=== PATIENT | female | born 1980 | race Caucasian/White ===

== ENCOUNTER 2023-08-13 00:05 | Inpatient (IN) | payer MEDICARE, MEDICAID ==
--- NOTE | 2023-08-13 00:50 | ED ---
General Adult HPI - General Source: patient, EMS, RN notes reviewed, old records reviewed Mode of arrival: EMS Limitations: altered mental status <Lenny Vazquez - Last Filed: 08/13/23 01:53> <Ken Machado - Last Filed: 08/13/23 13:35> - General Chief complaint: Psychiatric Symptoms Stated complaint: Mental Health Time Seen by Provider: 08/13/23 00:18 - History of Present Illness Initial comments: 44 female presents with overdose, alcohol intoxication. Patient states she took 100 Lamictal tablets. She does not know the dose. She does not know what time she took them. She does admit to alcohol consumption and states that she wants to . This was a suicide attempt. (Lenny Vazquez) - Related Data Home Medications Medication Instructions Recorded Confirmed ARIPiprazole [Abilify] 2 mg PO HS 08/13/23 08/13/23 Desvenlafaxine Succinate [Pristiq 25 mg PO HS 08/13/23 08/13/23 ER] Gabapentin [Gralise] 600 mg PO TID 08/13/23 08/13/23 Levothyroxine Sodium [Synthroid] 50 mcg PO HS 08/13/23 08/13/23 Nicotine 21Mg/24Hr Patch [Habitrol] 1 patch TRANSDERM DAILY PRN 08/13/23 08/13/23 Propranolol [Inderal] 20 mg PO HS 08/13/23 08/13/23 clonazePAM [KlonoPIN] 1 mg PO BID 08/13/23 08/13/23 lamoTRIgine [LaMICtal] 400 mg PO BID 08/13/23 08/13/23 Allergies Allergy/AdvReac Type Severity Reaction Status Date / Time No Known Allergies Allergy Verified 08/13/23 10:16 Review of Systems ROS Other: All systems not noted in ROS Statement are negative. <Lenny Vazquez - Last Filed: 08/13/23 01:53> ROS Other: All systems not noted in ROS Statement are negative. <Ken Machado - Last Filed: 08/13/23 13:35> ROS Statement: Those systems with pertinent positive or pertinent negative responses have been documented in the HPI. General Exam General appearance: alert, appears intoxicated Head exam: Present: atraumatic, normocephalic Eye exam: Present: normal appearance, PERRL ENT exam: Present: normal exam Neck exam: Present: normal inspection Respiratory exam: Present: normal lung sounds bilaterally. Absent: respiratory distress, wheezes Cardiovascular Exam: Present: regular rate, normal rhythm GI/Abdominal exam: Present: soft. Absent: distended, tenderness Extremities exam: Present: normal inspection, normal capillary refill Neurological exam: Present: alert, oriented X3, CN II-XII intact Psychiatric exam: Present: depressed, anxious, suicidal ideation Skin exam: Present: warm, dry, intact <Lenny Vazquez - Last Filed: 08/13/23 01:53> Course Vital Signs 08/13/23 08/13/23 08/13/23 00:19 01:15 04:16 Temperature 98.7 F Pulse Rate 82 78 70 Respiratory 18 18 16 Rate Blood Pressure 113/95 123/89 112/80 O2 Sat by Pulse 95 96 94 L Oximetry 08/13/23 08/13/23 06:41 10:50 Temperature Pulse Rate 78 76 Respiratory 18 14 Rate Blood Pressure 141/100 150/97 O2 Sat by Pulse 100 99 Oximetry Medical Decision Making - Lab Data Result diagrams: 08/13/23 01:02 08/13/23 01:02 <Lenny Vazquez - Last Filed: 08/13/23 01:53> - Lab Data Result diagrams: 08/13/23 01:02 08/13/23 01:02 <Ken Machado - Last Filed: 08/13/23 13:35> - Medical Decision Making Was pt. sent in by a medical professional or institution (, PA, ALARM INSTALLATION TECHNICIAN, urgent care, hospital, or senior care...) When possible be specific @ -No Did you speak to anyone other than the patient for history (EMS, parent, family, police, friend...)? What history was obtained from this source @ -No Did you review nursing and triage notes (agree or disagree)? Why? @ -I reviewed and agree with nursing and triage notes Were old charts reviewed (outside hosp., previous admission, EMS record, old EKG, old radiological studies, urgent care reports/EKG's, senior care records)? Report findings @ -No old charts were reviewed Differential Mental Health Depression, anxiety, bipolar, psychosis, schizophrenia, borderline personality, situational depression, adjustment disorder, behavioral disorder, brain tumor, malingering, substance abuse, encephalopathy, medication reaction, dementia, hypothyroidism, degenerative neurologic disorder, lupus.... This is not meant to be all-inclusive list EKG interpreted by me (3pts min.). @ -Sinus rhythm with a first-degree AV block rate of 81, MN interval 212, QRS duration 88, QTc 401 X-rays interpreted by me (1pt min.). @ -None done CT interpreted by me (1pt min.). @ -None done U/S interpreted by me (1pt. min.). @ -None done What testing was considered but not performed or refused? (CT, X-rays, U/S, labs)? Why? @ -None What meds were considered but not given or refused? Why? @ -None Did you discuss the management of the patient with other professionals (professionals i.e. , PA, ALARM INSTALLATION TECHNICIAN, lab, RT, psych nurse, case management social worker, senior reservoir engineer, teacher, forestry technical officer, case resource manager)? Give summary @Discussed with poison control regarding recommendations, they recommend close monitoring and laboratory testing. Was smoking cessation discussed for >3mins.? @ -No Was critical care preformed (if so, how long)? @ -Yes, 35 minutes Were there social determinants of health that impacted care today? How? (Homelessness, low income, unemployed, alcoholism, drug addiction, transportation, low edu. Level, literacy, decrease access to med. care, assisted, rehab)? @ -No Was there de-escalation of care discussed even if they declined (Discuss DNR or withdrawal of care, Hospice)? DNR status @ -No What co-morbidities impacted this encounter? (DM, HTN, Smoking, COPD, CAD, Cancer, CVA, ARF, Chemo, Hep., AIDS, mental health diagnosis, sleep apnea, morbid obesity)? @ -Depression, alcohol abuse. Was patient admitted / discharged? Hospital course, mention meds given and route, prescriptions, significant lab abnormalities, going to OR and other pertinent info. @ -43-year-old female with alcohol intoxication, suicidal ideation and reported suicide attempt with overdose on Lamictal. Patient is on willing to stay when she took this and exactly how many tablets she took. Laboratory testing is performed with the only acute abnormality being a serum alcohol of 250. Patient will be observed on telemetry, monitor closely for symptoms of overdose and when sober she will be cleared for EPS evaluation. (Lenny Vazquez) Patient care signed out to me by previous shift physician, Dr. Vazquez. Augustin jackson, patient is a 43-year-old female presents to the emergency department for alleged Lamictal overdose. Case was discussed with poison control. Poison control requested medical monitoring until 10 monitoring for RN PRIOR AUTHORIZATION depression. Patient will be medically cleared should there be no acute medical issues until then. Patient eval by EPS recommended inpatient psychiatric admission. (Ken Machado) - Lab Data Lab Results 08/13/23 08/13/23 08/13/23 Range/Units 01:02 01:02 01:02 WBC 11.7 H (3.8-10.6) k/uL RBC 4.77 (3.80-5.40) m/uL Hgb 13.5 (11.4-16.0) gm/dL Hct 42.1 (34.0-46.0) % MCV 88.2 (80.0-100.0) fL MCH 28.3 (25.0-35.0) pg MCHC 32.1 (31.0-37.0) g/dL RDW 15.1 (11.5-15.5) % Plt Count 457 H (150-450) k/uL MPV 7.3 Neutrophils % 40 % Lymphocytes % 43 % Monocytes % 6 % Eosinophils % 8 % Basophils % 1 % Neutrophils # 4.6 (1.3-7.7) k/uL Lymphocytes # 5.0 H (1.0-4.8) k/uL Monocytes # 0.7 (0-1.0) k/uL Eosinophils # 0.9 H (0-0.7) k/uL Basophils # 0.2 (0-0.2) k/uL Manual Slide Review Performed PT 10.9 (10.0-12.5) sec INR 1.0 (<1.2) Sodium 143 (137-145) mmol/L Potassium 4.3 (3.5-5.1) mmol/L Chloride 108 H (98-107) mmol/L Carbon Dioxide 25 (22-30) mmol/L Anion Gap 10 mmol/L BUN 16 (7-17) mg/dL Creatinine 0.91 (0.52-1.04) mg/dL Est GFR (CKD-EPI)AfAm 88 (>60 ml/min/1.73 sqM) Est GFR (CKD-EPI)NonAf 76 (>60 ml/min/1.73 sqM) Glucose 117 H (74-99) mg/dL Plasma Lactic Acid Rudy (0.7-2.0) mmol/L Calcium 9.0 (8.4-10.2) mg/dL Magnesium 1.8 (1.6-2.3) mg/dL Total Bilirubin 0.3 (0.2-1.3) mg/dL AST 48 H (14-36) U/L ALT 38 H (4-34) U/L Alkaline Phosphatase 82 (38-126) U/L Total Protein 7.1 (6.3-8.2) g/dL Albumin 4.3 (3.5-5.0) g/dL Urine Color Urine Appearance (Clear) Urine pH (5.0-8.0) Ur Specific [place] (1.001-1.035) Urine Protein (Negative) Urine Glucose (UA) (Negative) Urine Ketones (Negative) Urine Blood (Negative) Urine Nitrite (Negative) Urine Bilirubin (Negative) Urine Urobilinogen (<2.0) mg/dL Ur Leukocyte Esterase (Negative) Urine RBC (0-5) /hpf Urine WBC (0-5) /hpf Ur Squamous Epith Cells (0-4) /hpf Urine Bacteria (None) /hpf Hyaline Casts (0-2) /lpf Urine Mucus (None) /hpf Urine HCG, Qual (Not Detectd) Salicylates <1.0 mg/dL Urine Opiates Screen (NotDetected) Ur Oxycodone Screen (NotDetected) Urine Methadone Screen (NotDetected) Acetaminophen <10.0 ug/mL Ur Barbiturates Screen (NotDetected) U Tricyclic Antidepress (NotDetected) Ur Phencyclidine Scrn (NotDetected) Ur Amphetamines Screen (NotDetected) U Methamphetamines Scrn (NotDetected) U Benzodiazepines Scrn (NotDetected) Urine Cocaine Screen (NotDetected) U Marijuana (THC) Screen (NotDetected) Serum Alcohol 256 H* mg/dL 08/13/23 08/13/23 08/13/23 Range/Units 01:02 01:52 01:52 WBC (3.8-10.6) k/uL RBC (3.80-5.40) m/uL Hgb (11.4-16.0) gm/dL Hct (34.0-46.0) % MCV (80.0-100.0) fL MCH (25.0-35.0) pg MCHC (31.0-37.0) g/dL RDW (11.5-15.5) % Plt Count (150-450) k/uL MPV Neutrophils % % Lymphocytes % % Monocytes % % Eosinophils % % Basophils % % Neutrophils # (1.3-7.7) k/uL Lymphocytes # (1.0-4.8) k/uL Monocytes # (0-1.0) k/uL Eosinophils # (0-0.7) k/uL Basophils # (0-0.2) k/uL Manual Slide Review PT (10.0-12.5) sec INR (<1.2) Sodium (137-145) mmol/L Potassium (3.5-5.1) mmol/L Chloride (98-107) mmol/L Carbon Dioxide (22-30) mmol/L Anion Gap mmol/L BUN (7-17) mg/dL Creatinine (0.52-1.04) mg/dL Est GFR (CKD-EPI)AfAm (>60 ml/min/1.73 sqM) Est GFR (CKD-EPI)NonAf (>60 ml/min/1.73 sqM) Glucose (74-99) mg/dL Plasma Lactic Acid Rudy 1.7 (0.7-2.0) mmol/L Calcium (8.4-10.2) mg/dL Magnesium (1.6-2.3) mg/dL Total Bilirubin (0.2-1.3) mg/dL AST (14-36) U/L ALT (4-34) U/L Alkaline Phosphatase (38-126) U/L Total Protein (6.3-8.2) g/dL Albumin (3.5-5.0) g/dL Urine Color Colorless Urine Appearance Cloudy H (Clear) Urine pH 6.5 (5.0-8.0) Ur Specific [place] 1.013 (1.001-1.035) Urine Protein Negative (Negative) Urine Glucose (UA) Negative (Negative) Urine Ketones Negative (Negative) Urine Blood Negative (Negative) Urine Nitrite Negative (Negative) Urine Bilirubin Negative (Negative) Urine Urobilinogen <2.0 (<2.0) mg/dL Ur Leukocyte Esterase Negative (Negative) Urine RBC <1 (0-5) /hpf Urine WBC 3 (0-5) /hpf Ur Squamous Epith Cells 14 H (0-4) /hpf Urine Bacteria Few H (None) /hpf Hyaline Casts 3 H (0-2) /lpf Urine Mucus Rare H (None) /hpf Urine HCG, Qual Not Detected (Not Detectd) Salicylates mg/dL Urine Opiates Screen Not Detected (NotDetected) Ur Oxycodone Screen Not Detected (NotDetected) Urine Methadone Screen Not Detected (NotDetected) Acetaminophen ug/mL Ur Barbiturates Screen Not Detected (NotDetected) U Tricyclic Antidepress Not Detected (NotDetected) Ur Phencyclidine Scrn Not Detected (NotDetected) Ur Amphetamines Screen Not Detected (NotDetected) U Methamphetamines Scrn Not Detected (NotDetected) U Benzodiazepines Scrn Not Detected (NotDetected) Urine Cocaine Screen Not Detected (NotDetected) U Marijuana (THC) Screen Not Detected (NotDetected) Serum Alcohol mg/dL Critical Care Time Critical Care Time: Yes Total Critical Care Time: 35 <Lenny Vazquez - Last Filed: 08/13/23 01:53> Critical Care Time: Monitoring of overdose, alcohol intoxication, suicide attempt (Lenny Vazquez) Disposition <Lenny Vazquez - Last Filed: 08/13/23 01:53> Decision Time: 13:35 <Ken Machado - Last Filed: 08/13/23 13:35> Clinical Impression: Suicidal behavior Disposition: ADMITTED IP TO THIS HOSP Condition: Fair Referrals: None,Stated [Primary Care Provider] - 1-2 days
[2023-08-13] MEDS: SODIUM CHLORIDE 0.9% 1,000 ML IV STA (01:13)
[2023-08-13 01:14] LABS: Basophils # (A) 0.2 k/uL (0-0.2); Basophils % (A) 1 %; Eosinophils # (A) 0.9 k/uL (0-0.7); Eosinophils % (A) 8 %; HCT 42.1 % (34.0-46.0); HGB 13.5 gm/dL (11.4-16.0); Lymphocytes % (A) 43 %; MCH 28.3 pg (25.0-35.0); MCHC 32.1 g/dL (31.0-37.0); MCV 88.2 fL (80.0-100.0); Mean Platelet Volume 7.3; Monocytes # (A) 0.7 k/uL (0-1.0); Monocytes % (A) 6 %; Neutrophils # (A) 4.6 k/uL (1.3-7.7); Neutrophils % (A) 40 %; Platelet Count 457 k/uL (150-450); RBC 4.77 m/uL (3.80-5.40); RDW 15.1 % (11.5-15.5); WBC 11.7 k/uL (3.8-10.6)
[2023-08-13 01:24] LABS: ALT 38 U/L (4-34); AST 48 U/L (14-36); Acetaminophen <10.0 ug/mL; African American GFR (CKD) 88 (>60 ml/min/1.73 sqM); Albumin 4.3 g/dL (3.5-5.0); Alkaline Phosphatase 82 U/L (38-126); Anion Gap 10 mmol/L; Blood Urea Nitrogen 16 mg/dL (7-17); Carbon Dioxide 25 mmol/L (22-30); Chloride 108 mmol/L (98-107); Glucose 117 mg/dL (74-99); Magnesium 1.8 mg/dL (1.6-2.3); Non-African American GFR(CKD) 76 (>60 ml/min/1.73 sqM); Potassium 4.3 mmol/L (3.5-5.1); Prothrombin Time 10.9 sec (10.0-12.5); Salicylate <1.0 mg/dL; Sodium 143 mmol/L (137-145); Total Bilirubin 0.3 mg/dL (0.2-1.3); Total Protein 7.1 g/dL (6.3-8.2)
[2023-08-13 01:37] LABS: Alcohol 256 mg/dL
[2023-08-13 02:14] LABS: Appearance,Urine Cloudy (Clear); Bacteria,Urine Few /hpf; Bilirubin,Urine Negative (Negative); Blood,Urine Negative (Negative); Color,Urine Colorless; Glucose,Urine (UA) Negative (Negative); Hyaline Casts,Urine 3 /lpf (0-2); Ketones,Urine Negative (Negative); Leukocyte Esterase,Urine Negative (Negative); Mucus,Urine Rare /hpf; Nitrite,Urine Negative (Negative); PH, Urine 6.5 (5.0-8.0); Protein,Urine Negative (Negative); RBC,Urine <1 /hpf (0-5); Specific Gravity,Urine 1.013 (1.001-1.035); Squamous Epithelial Cell,Urine 14 /hpf (0-4); Urobilinogen,Urine <2.0 mg/dL (<2.0); WBC,Urine 3 /hpf (0-5)
[2023-08-13 02:24] LABS: Amphetamine Screen,Urine Not Detected (NotDetected); Cocaine Screen,Urine Not Detected (NotDetected); Opiate Screen,Urine Not Detected (NotDetected); Phencyclidine Screen,Urine Not Detected (NotDetected); Urn Cannabinoid Scrn Not Detected (NotDetected)
[2023-08-13 02:25] LABS: Barbiturate Screen,Urine Not Detected (NotDetected); Benzodiazepines Screen,Urine Not Detected (NotDetected); Methadone Screen, Urine Not Detected (NotDetected); Oxycodone Screen, Urine Not Detected (NotDetected); Tricyclic Antidepressant,Urine Not Detected (NotDetected)
[2023-08-13] MEDS: ONDANSETRON 4 MG TAB PO STA (07:36)
[2023-08-13] MEDS: GABAPENTIN 300 MG CAP PO SCH ×2 (10:47→17:48)
[2023-08-13] MEDS: clonazePAM 1 MG TAB PO SCH (10:47)
[2023-08-13] MEDS: lamoTRIgine 100 MG TAB PO SCH (12:37)
[2023-08-13] MEDS: NICOTINE 21MG/24HR PATCH TRANSDERM PRN (13:41)
[2023-08-13] MEDS ORDERED: MAGNESIUM HYDROXIDE 2,400 MG/30 ML CUP PO PRN (17:06)
[2023-08-13] MEDS ORDERED: MAG HYDROX/AL HYDROX/SIMETH 355 ML BOTTLE PO PRN (17:06)
[2023-08-13] MEDS ORDERED: HALOPERIDOL LACTATE 5 MG/ML 1 ML VIAL IM PRN (17:10)
[2023-08-13] MEDS: PROPRANOLOL 20 MG TAB PO SCH (20:08)
[2023-08-13] MEDS: clonazePAM 1 MG TAB PO PRN (20:08)
[2023-08-13] MEDS: ARIPiprazole 2 MG TAB PO SCH (20:09)
[2023-08-13] MEDS ORDERED: ARIPiprazole 2 MG TAB PO SCH (21:00)
[2023-08-13] MEDS ORDERED: NON FORMULARY DRUG (Desvenlafaxine Succinate [Pristiq] 25 MG Tab.Er.24h) PO SCH (21:00)
[2023-08-13] MEDS ORDERED: PROPRANOLOL 10 MG TAB PO SCH (21:00)
[2023-08-13] MEDS ORDERED: LEVOTHYROXINE 50 MCG TAB PO SCH (21:00)
[2023-08-14] MEDS ORDERED: LORazepam 1 MG TAB PO PRN ×3 (00:44)
--- NOTE | 2023-08-14 00:44 | P.MDCNMH ---
History of Present Illness H&P Date: 08/14/23 Chief Complaint: medical evaluation 43 year old female with hypertension , and hypothyroid patient came in for evaluation due to alcohol intoxication and suicidal ideation , she claims that she overdosed on lamictal. currently her only complaint is diarrhea that has started after the over dose. denies any associated abd pain or bleeding . denies any nausea vomiting, fever, recent travel , or hospital stay. she denies any recent use of antibiotics. admits to vaping, denies any illicit drugs , admits to binge drinking alcohol review of systems Pertinent positives as noted in HPI. All other systems were reviewed and are negative on exam Constitutional: No acute distress, Eyes: Anicteric sclerae, moist conjunctiva, Pupils equal round reactive to light Lungs: Clear to auscultation Clear to percussion Normal respiratory effort, no accessory muscle use Cardiovascular: Heart regular in rate and rhythm, No murmurs, gallops, or rubs No peripheral edema Abdominal: Soft Nontender, no guarding, rebound or rigidity Abdomen moving with respiration Normoactive bowel sounds Extremities: No digital cyanosis No clubbing Pedal pulses intact and symmetrical Radial pulses intact and symmetrical No calf tenderness Psychiatric: Alert and oriented to person, place and time Neuro Muscles Strength 5/5 in all 4 extremities Sensation to light touch grossly present throughout Cranial nerves II-XII grossly intact Past Medical History Past Medical History: Thyroid Disorder History of Any Multi-Drug Resistant Organisms: None Reported Past Surgical History: Section, Hysterectomy Additional Past Surgical History / Comment(s): partial thyroidectomy, tumor removal on left buttock Past Anesthesia/Blood Transfusion Reactions: No Reported Reaction Past Psychological History: Bipolar Smoking Status: Vaper Past Alcohol Use History: Heavy, Occasional Additional Past Alcohol Use History / Comment(s): Pt states the she drinks heavily when she does drink but only drinks a few times/month. States "when I do drink, I drink until it's gone. I don't try to stop. I always feel guilty after I drink." Past Drug Use History: None Reported Medications and Allergies Home Medications Medication Instructions Recorded Confirmed Type ARIPiprazole [Abilify] 2 mg PO HS 08/13/23 08/13/23 History Desvenlafaxine Succinate [Pristiq 25 mg PO HS 08/13/23 08/13/23 History ER] Gabapentin [Gralise] 600 mg PO TID 08/13/23 08/13/23 History Levothyroxine Sodium [Synthroid] 50 mcg PO HS 08/13/23 08/13/23 History Nicotine 21Mg/24Hr Patch [Habitrol] 1 patch TRANSDERM DAILY PRN 08/13/23 08/13/23 History Propranolol [Inderal] 20 mg PO HS 08/13/23 08/13/23 History clonazePAM [KlonoPIN] 1 mg PO BID 08/13/23 08/13/23 History lamoTRIgine [LaMICtal] 400 mg PO BID 08/13/23 08/13/23 History Allergies Allergy/AdvReac Type Severity Reaction Status Date / Time No Known Allergies Allergy Verified 08/13/23 10:16 Physical Exam Vitals: Vital Signs Temp Pulse Pulse Resp BP BP BP 08/13/23 20:16 97 163/104 08/13/23 17:45 97.6 F 90 14 147/86 08/13/23 10:50 76 14 150/97 08/13/23 06:41 78 18 141/100 08/13/23 04:16 70 16 112/80 08/13/23 01:15 78 18 123/89 Pulse Ox 08/13/23 20:16 08/13/23 17:45 99 08/13/23 10:50 99 08/13/23 06:41 100 08/13/23 04:16 94 L 08/13/23 01:15 96 Intake and Output 08/13/23 08/13/23 08/14/23 14:59 22:59 06:59 Other: Weight 88.6 kg Cranial Nerve Examination - Cranial Nerves Cranial Nerve II- Optic: Intact Cranial Nerve III- Oculomotor: Intact Cranial Nerve IV- Trochlear: Intact Cranial Nerve V- Trigeminal: Intact Cranial Nerve - Abducens: Intact Cranial Nerve VII- Facial: Intact Cranial Nerve VIII- Auditory: Intact Cranial Nerve IX- Glossopharyngeal: Intact Cranial Nerve X- Vagus: Intact Cranial Nerve XI- Accessory: Intact Cranial Nerve XII- Hypoglossal: Intact Results CBC & Chem 7: 08/13/23 01:02 08/13/23 01:02 Labs: Abnormal Lab Results - Last 24 Hours (Table) 08/13/23 08/13/23 08/13/23 Range/Units 01:02 01:02 01:52 WBC 11.7 H (3.8-10.6) k/uL Plt Count 457 H (150-450) k/uL Lymphocytes # 5.0 H (1.0-4.8) k/uL Eosinophils # 0.9 H (0-0.7) k/uL Chloride 108 H (98-107) mmol/L Glucose 117 H (74-99) mg/dL AST 48 H (14-36) U/L ALT 38 H (4-34) U/L Urine Appearance Cloudy H (Clear) Ur Squamous Epith Cells 14 H (0-4) /hpf Urine Bacteria Few H (None) /hpf Hyaline Casts 3 H (0-2) /lpf Urine Mucus Rare H (None) /hpf Serum Alcohol 256 H* mg/dL Assessment and Plan Assessment: hypertension , uncontrolled continue with propranolol if BP continues to be elevated , consider adding amlodipine 5 mg po daily hypothyroid continue levothyroxine suicidal ideation overdose on home meds lamictal management per psych acute alcohol intoxication monitor for alcohol withdrawal benzo per CIWA thiamine daily blood work overall unremarkable WBC 11.7 Hgb 13.5 BUN 16 cr 0.9 Na 143, K 4.3 thank you for this consultation
[2023-08-14] MEDS: IBUPROFEN 600 MG TAB PO PRN (01:52)
[2023-08-14] MEDS: ACETAMINOPHEN TAB 325 MG TAB PO PRN (03:42)
[2023-08-14] MEDS: LEVOTHYROXINE 50 MCG TAB PO SCH (06:11)
[2023-08-14] MEDS: NICOTINE 21MG/24HR PATCH TRANSDERM SCH (07:52)
[2023-08-14] MEDS: diphenhydrAMINE 50 MG CAP PO SCH (19:59)
[2023-08-15] MEDS: LORazepam 0.5 MG TAB PO PRN (05:56)
[2023-08-15] MEDS: THIAMINE 100 MG TAB PO SCH (08:53)
--- NOTE | 2023-08-15 13:22 | P.HP ---
Psychiatric H&P - . H&P Date: 08/14/23 History & Physical: Allergies Allergy/AdvReac Type Severity Reaction Status Date / Time No Known Allergies Allergy Verified 08/14/23 08:24 Vital Signs Temp 98.0 F 08/15/23 06:01 Pulse 76 08/15/23 06:01 Resp 18 08/15/23 06:01 BP 137/91 08/15/23 06:01 Pulse Ox 99 08/15/23 06:01 FiO2 Laboratory Last Values WBC 11.7 k/uL (3.8-10.6) H 08/13/23 01:02 RBC 4.77 m/uL (3.80-5.40) 08/13/23 01:02 Hgb 13.5 gm/dL (11.4-16.0) 08/13/23 01:02 Hct 42.1 % (34.0-46.0) 08/13/23 01:02 MCV 88.2 fL (80.0-100.0) 08/13/23 01:02 MCH 28.3 pg (25.0-35.0) 08/13/23 01:02 MCHC 32.1 g/dL (31.0-37.0) 08/13/23 01:02 RDW 15.1 % (11.5-15.5) 08/13/23 01:02 Plt Count 457 k/uL (150-450) H 08/13/23 01:02 MPV 7.3 08/13/23 01:02 Neutrophils % 40 % 08/13/23 01:02 Lymphocytes % 43 % 08/13/23 01:02 Monocytes % 6 % 08/13/23 01:02 Eosinophils % 8 % 08/13/23 01:02 Basophils % 1 % 08/13/23 01:02 Neutrophils # 4.6 k/uL (1.3-7.7) 08/13/23 01:02 Lymphocytes # 5.0 k/uL (1.0-4.8) H 08/13/23 01:02 Monocytes # 0.7 k/uL (0-1.0) 08/13/23 01:02 Eosinophils # 0.9 k/uL (0-0.7) H 08/13/23 01:02 Basophils # 0.2 k/uL (0-0.2) 08/13/23 01:02 Manual Slide Review Performed 08/13/23 01:02 PT 10.9 sec (10.0-12.5) 08/13/23 01:02 INR 1.0 (<1.2) 08/13/23 01:02 Sodium 143 mmol/L (137-145) 08/13/23 01:02 Potassium 4.3 mmol/L (3.5-5.1) 08/13/23 01:02 Chloride 108 mmol/L (98-107) H 08/13/23 01:02 Carbon Dioxide 25 mmol/L (22-30) 08/13/23 01:02 Anion Gap 10 mmol/L 08/13/23 01:02 BUN 16 mg/dL (7-17) 08/13/23 01:02 Creatinine 0.91 mg/dL (0.52-1.04) 08/13/23 01:02 Est GFR (CKD-EPI)AfAm 88 (>60 ml/min/1.73 sqM) 08/13/23 01:02 Est GFR (CKD-EPI)NonAf 76 (>60 ml/min/1.73 sqM) 08/13/23 01:02 Glucose 117 mg/dL (74-99) H 08/13/23 01:02 Plasma Lactic Acid Rudy 1.7 mmol/L (0.7-2.0) 08/13/23 01:02 Calcium 9.0 mg/dL (8.4-10.2) 08/13/23 01:02 Magnesium 1.8 mg/dL (1.6-2.3) 08/13/23 01:02 Total Bilirubin 0.3 mg/dL (0.2-1.3) 08/13/23 01:02 AST 48 U/L (14-36) H 08/13/23 01:02 ALT 38 U/L (4-34) H 08/13/23 01:02 Alkaline Phosphatase 82 U/L (38-126) 08/13/23 01:02 Total Protein 7.1 g/dL (6.3-8.2) 08/13/23 01:02 Albumin 4.3 g/dL (3.5-5.0) 08/13/23 01:02 TSH 13.700 mIU/L (0.465-4.680) H 08/15/23 08:02 Free T4 1.00 ng/dL (0.78-2.19) 08/15/23 08:02 Urine Color Colorless 08/13/23 01:52 Urine Appearance Cloudy (Clear) H 08/13/23 01:52 Urine pH 6.5 (5.0-8.0) 08/13/23 01:52 Ur Specific [place] 1.013 (1.001-1.035) 08/13/23 01:52 Urine Protein Negative (Negative) 08/13/23 01:52 Urine Glucose (UA) Negative (Negative) 08/13/23 01:52 Urine Ketones Negative (Negative) 08/13/23 01:52 Urine Blood Negative (Negative) 08/13/23 01:52 Urine Nitrite Negative (Negative) 08/13/23 01:52 Urine Bilirubin Negative (Negative) 08/13/23 01:52 Urine Urobilinogen <2.0 mg/dL (<2.0) 08/13/23 01:52 Ur Leukocyte Esterase Negative (Negative) 08/13/23 01:52 Urine RBC <1 /hpf (0-5) 08/13/23 01:52 Urine WBC 3 /hpf (0-5) 08/13/23 01:52 Ur Squamous Epith Cells 14 /hpf (0-4) H 08/13/23 01:52 Urine Bacteria Few /hpf (None) H 08/13/23 01:52 Hyaline Casts 3 /lpf (0-2) H 08/13/23 01:52 Urine Mucus Rare /hpf (None) H 08/13/23 01:52 Urine HCG, Qual Not Detected (Not Detectd) 08/13/23 01:52 Salicylates <1.0 mg/dL 08/13/23 01:02 Urine Opiates Screen Not Detected (NotDetected) 08/13/23 01:52 Ur Oxycodone Screen Not Detected (NotDetected) 08/13/23 01:52 Urine Methadone Screen Not Detected (NotDetected) 08/13/23 01:52 Acetaminophen <10.0 ug/mL 08/13/23 01:02 Ur Barbiturates Screen Not Detected (NotDetected) 08/13/23 01:52 Lamotrigine 7.5 ug/mL (2.0-15.0) 08/13/23 18:42 U Tricyclic Antidepress Not Detected (NotDetected) 08/13/23 01:52 Ur Phencyclidine Scrn Not Detected (NotDetected) 08/13/23 01:52 Ur Amphetamines Screen Not Detected (NotDetected) 08/13/23 01:52 U Methamphetamines Scrn Not Detected (NotDetected) 08/13/23 01:52 U Benzodiazepines Scrn Not Detected (NotDetected) 08/13/23 01:52 Urine Cocaine Screen Not Detected (NotDetected) 08/13/23 01:52 U Marijuana (THC) Screen Not Detected (NotDetected) 08/13/23 01:52 Serum Alcohol 256 mg/dL H* 08/13/23 01:02 SARS-CoV-2 (PCR) Not Detected (Not Detectd) 08/13/23 13:51 08/14/23 13:20 Psychiatric Evaluation Identifying Data: Ms. Tatum is 43 years old, , white female, who lives in [place], [place] in a condo by herself. Chief Complaint: I made a bad choice, took Lamictal to History of Psychiatric Illness- The patient noted that she made a mistake by drinking and then taking 15-20 pills of Lamictal. The patient noted that she was thinking about her brother, who a year ago. She felt acutely depressed after getting intoxicated and made an impulsive gesture. The patient noted that she was doing fine but this happened suddenly. She called the ambulance after taking the pills. She stated that she does not want to . The patient noted she has been seeing a psychiat rist and a therapist as an out-pt on a regular basis since her twenties. She noted that she has been taking different antidepressants over the years but has been on Lamictal on a consistent basis. The patient noted that most recently she was on Pristiq but it is now stopped. She has been placed on Abilify. Her current medications are Lamictal, Klonopin, Neurontin, and Inderal. The patient noted that she was first hospitalized in her twenties to [facility] for depression and overdose of pills. She was in the hospital for 5 days. She was discharged Seroquel, [place], Remeron and Klonopin. Past Psychiatric History: As noted above. Past Medication History: Prozac, Paxil, Zoloft, Cymbalta, Buspar, Wellbutrin, Celexa, Lexapro, Risperdal. Leading questions: The patient denied admitted to Depression and Anxiety. Denied SI or HI. Denied symptoms consistent with psychosis Drugs and alcohol history: Alcohol 4-6 times a month. She denied abusing alcohol, Marijuana. She admitted to abusing Opioids. She is clean for 20 years. Tobacco use: Vape Past Medical history: Seizures, Hashimotos disease Family History of Psychiatric Disorder: The patient denied. No h/o of suicide or homicide. Social History and Family History: The patient was born and raised in [place], [place]. She grew-up with three siblings. She finished [employer] and has associates degree in nursing. 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 She has two children ag 19 and 20. OTC: Tylenol, Benadryl. Allergies: None Objective: MSE: Alert and attentive. Orientation times three Dressed and Groomed: Appropriately. Pleasant and cooperative. Psychomotor Activity: Normal. Speech: Normal in tone, quality, and quantity. Mood: Depressed and anxious. Affect: Anxious and sad. SI or HI: None. Perceptual disturbance: None. Thought Content: No paranoia or other delusional thinking noted. Thought Process: Normal. Cognition: Intact Judgment and Insight: Fair AIMS: Normal Labs: Available labs reviewed. Diagnosis: Major Depressive disorder, recurrent severe. Plan and Recommendations: Continue current Medications. Monitor MS and side effects of medications and adjust medications accordingly. Provide supportive psychotherapy and psychoeducation. The patient provided psychoeducation. Smoke cessation therapy. The patient to attend singletary Milieu. Lipid Profile, HbA1c, EKG, Medication Consent with explanation of risk/benefits and side effects: Explained and obtained.
--- NOTE | 2023-08-15 13:24 | P.PN ---
Progress Note - Text Progress Note Date: 08/15/23 Follow-up Mediation Review Chief Complaint: I get emotional in the groups. Subjective: The patient noted that she is getting emotional and cries in the group. She stated that sharing her feelings and listening to other people makes her sad. Her sadness fluctuates with emotions. The patient noted that she was feeling her worst in the group but now she is almost close her normal mood. The patient noted that her problem in kristi. She does lot of things which hurt other people when she is manic. No new complaints. The patient has been attending the groups. The participation is good. The interaction with staff and peers is good. The patient is compliant with treatment recommendations. Leading questions: The patient admitted to Depression and Anxiety. Denied SI or HI. Denied symptoms consistent with psychosis Sleep and Appetite: Change in family/ living/job/financial/daily routine: No change. Change in medical condition: No change. Change in medications: No change. Side effects from Medications: None. Allergies: No change. Objective- MSE: Alert and attentive. Orientation times three. Dressed and Groomed: Appropriately. Pleasant and cooperative. Psychomotor Activity: Normal. Speech: Normal in tone, quality, and quantity. Mood: Depressed and anxious Affect: Appropriate to the mood. SI or HI: None. Perceptual disturbance: None. Thought Content: No paranoia or other delusional thinking noted. Thought Process: Normal. Cognition: Intact Judgment and Insight: Poor AIMS: Normal. Labs: No new labs. Diagnosis: Plan and Recommendations: Continue current Medications. Monitor MS and side effects of medications and adjust medications accordingly. Provide supportive psychotherapy. The patient provided psychoeducation and advised The patient provided Substance abuse counseling. Smoke cessation therapy. The patient to attend singletary activities. TSH, Lipid Profile, HbA1c, EKG. Medication Consent with explanation of risk/benefits and side effects: Explained and obtained.
[2023-08-15 17:40] LABS: Chol/HDL Ratio 3.58 Ratio; LDL Cholesterol,Calculated 71.9 mg/dL (0.0-131.0)
[2023-08-15] MEDS: ARIPiprazole 5 MG TAB PO SCH (21:08)
[2023-08-16] MEDS: haloperidoL 5 MG TAB PO PRN (00:06)
[2023-08-16 11:43] VITALS: RESP 16
--- NOTE | 2023-08-16 13:42 | P.PN ---
Progress Note - Text Progress Note Date: 08/16/23 Follow-up Mediation Review Chief Complaint: I did not get emotional in the groups. Subjective: The patient noted that she is getting emotional and cries in the group. She stated that sharing her feelings and listening to other people makes her sad. Her sadness fluctuates with emotions. The patient noted that she was feeling her worst in the group but now she is almost close her normal mood. The patient noted that her problem in kristi. She does lot of things which hurt other people when she is manic. No new complaints. The patient has been attending the groups. The participation is good. The interaction with staff and peers is good. The patient is compliant with treatmen t recommendations. Leading questions: The patient admitted to Depression and Anxiety. Denied SI or HI. Denied symptoms consistent with psychosis Sleep and Appetite: Change in family/ living/job/financial/daily routine: No change. Change in medical condition: No change. Change in medications: No change. Side effects from Medications: None. Allergies: No change. Objective- MSE: Alert and attentive. Orientation times three. Dressed and Groomed: Appropriately. Pleasant and cooperative. Psychomotor Activity: Normal. Speech: Normal in tone, quality, and quantity. Mood: Depressed and anxious Affect: Appropriate to the mood. SI or HI: None. Perceptual disturbance: None. Thought Content: No paranoia or other delusional thinking noted. Thought Process: Normal. Cognition: Intact Judgment and Insight: Poor AIMS: Normal. Labs: No new labs. Diagnosis: Plan and Recommendations: Continue current Medications. Monitor MS and side effects of medications and adjust medications accordingly. Provide supportive psychotherapy. The patient provided psychoeducation and advised The patient provided Substance abuse counseling. Smoke cessation therapy. The patient to attend singletary activities. TSH, Lipid Profile, HbA1c, EKG. Medication Consent with explanation of risk/benefits and side effects: Explained and obtained.
[2023-08-18 06:51] VITALS: BP 123/85; PULSE 72; TEMP 97.9
[2023-08-18] MEDS: clonazePAM 1 MG TAB PO PRN (08:01)
--- NOTE | 2023-08-18 13:05 | P.DS ---
Providers Date of admission: 08/13/23 16:58 Expected date of discharge: 08/18/23 Attending physician: Prem Gross MD Consults: 08/13/23 17:06 Consult Physician Routine Consulting Provider: Patricia Valerio Consult Reason/Comments: H&P Do you want consulting provider notified?: Yes Primary care physician: Stated None - Discharge Diagnosis(es) (1) Major depressive disorder, recurrent severe without psychotic features Current Visit: Yes Status: Acute Priority: High Hospital Course: Discharge Summary HPI: Identifying Data: Ms. Tatum is 43 years old, , white female, who lives in [place], [place] in a condo by herself. Chief Complaint: I made a bad choice, took Lamictal to History of Psychiatric Illness- The patient noted that she made a mistake by drinking and then taking 15-20 pills of Lamictal. The patient noted that she was thinking about her brother, who a year ago. She felt acutely depressed after getting intoxicated and made an impulsive gesture. The patient noted that she was doing fine but this happened suddenly. She called the ambulance after taking the pills. She stated that she does not want to . The patient noted she has been seeing a psychiatrist and a therapist as an out-pt on a regular basis since her twenties. She noted that she has been taking different antidepressants over the years but has been on Lamictal on a consistent basis. The patient noted that most recently she was on Pristiq but it is now stopped. She has been placed on Abilify. Her current medications are Lamictal, Klonopin, Neurontin, and Inderal. The patient noted that she was first hospitalized in her twenties to [facility] for depression and overdose of pills. She was in the hospital for 5 days. She was discharged Seroquel, Marne, Remeron and Klonopin. Past Psychiatric History: As noted above. Past Medication History: Prozac, Paxil, Zoloft, Cymbalta, Buspar, Wellbutrin, Celexa, Lexapro, Risperdal. Leading questions: The patient denied admitted to Depression and Anxiety. Denied SI or HI. Denied symptoms consistent with psychosis Drugs and alcohol history: Alcohol 4-6 times a month. She denied abusing alcohol, Marijuana. She admitted to abusing Opioids. She is clean for 20 years. Tobacco use: Vape Past Medical history: Seizures, Hashimotos disease Hospital Course: After admission, the patient was involved in pharmacotherapy, singletary milieu, and individual psychodynamic psychotherapy. The patient was started on Abilify, Pristiq was discontinued. The dose was titrated to obtain the desire effects. The patient tolerated medications well without any side effects. The patient was also involved in singletary activities. The patient attended the groups and participated well. The patient interacted with peers and staff well. The patient slowly started showing improvement. The hospital course was uneventful. The patient symptoms of depression, suicidal and homicidal ideations abated. The patient was stable to be discharged to out-patient care. The patient did not have any guns or weapons in possession at home. MSE: Alert and attentive. Orientation times three Dressed and Groomed: Appropriately. Pleasant and cooperative. Psychomotor Activity: Normal. Speech: Normal in tone, quality, and quantity. Mood: Depressed and anxious. Affect: Anxious and sad. SI or HI: None. Perceptual disturbance: None. Thought Content: No paranoia or other delusional thinking noted. Thought Process: Normal. Cognition: Intact Judgment and Insight: Fair AIMS: Normal Labs: Available labs reviewed. Diagnosis: Major Depressive disorder, recurrent severe. Plan: The patient to be discharged today. The patient has attained good improvement since admission. He is stable to be followed as an outpatient. The patient is not suicidal or Homicidal. He does not pose any harm to self or others. The patient remains at a greater risk of self-harm or harm to others than general population on a chronic basis due to psychiatric illness and substance abuse. The patient will continue taking discharge medication post discharge. The importance of medication compliance and maintaining regular appointments at psychiatric out-pt and PCP clinic was explained and encouraged. The patient was also advised to seek alcohol counseling and attend AA/NA meetings. The understood and agreed with the recommendations. dietary worker to arrange for and conduct family meeting to ensure safety upon discharge and answer any questions. The social media manager to arrange for patients follow-up appointments at [facility] for psychiatric care along with follow-up with PCP. The patient provided psychoeducation. Advised to call 911 or go to nearest ED or call this hospital in case of acute worsening of symptomatology, severe side effects or having suicidal, homicidal thoughts and feeling unsafe at home. Patient Condition at Discharge: Stable Plan - Discharge Summary Discharge Rx Participant: Yes New Discharge Prescriptions: New ARIPiprazole [Abilify] 5 mg PO HS 15 Days #15 tab Continue Propranolol [Inderal] 20 mg PO HS Levothyroxine Sodium [Synthroid] 50 mcg PO HS Gabapentin [Gralise] 600 mg PO TID 15 Days #45 tab Discontinued lamoTRIgine [LaMICtal] 400 mg PO BID Nicotine 21Mg/24Hr Patch [Habitrol] 1 patch TRANSDERM DAILY PRN PRN Reason: Nicotine Cravings Desvenlafaxine Succinate [Pristiq ER] 25 mg PO HS ARIPiprazole [Abilify] 2 mg PO HS clonazePAM [KlonoPIN] 1 mg PO BID Discharge Medication List Levothyroxine Sodium [Synthroid] 50 mcg PO HS 08/13/23 [History] Propranolol [Inderal] 20 mg PO HS 08/13/23 [History] ARIPiprazole [Abilify] 5 mg PO HS 15 Days #15 tab 08/18/23 [Rx] Gabapentin [Gralise] 600 mg PO TID 15 Days #45 tab 08/18/23 [Rx] Follow up Appointment(s)/Referral(s): PsychiatryJayna [Other] - 08/23/23 12:15 pm ( Virtual 08/22 @ 12:15 with Melania Mei) [facility] Patient Instructions/Handouts: How to Stop Smoking (DC), Depression (DC) Activity/Diet/Wound Care/Special Instructions: Avoid the use of street drugs and alcohol. Take all medications as prescribed. When you are in need of refills on your medications, please contact your medical provider and/or outpatient psychiatrist/provider to have this done. Please go to your scheduled outpatient appointment for aftercare treatment. If symptoms return or become worse, call the crisis line at and/or go to the nearest emergency room for evaluation. National Suicide Hotline 985 Discharge Disposition: HOME SELF-CARE
== END 2023-08-18 12:30 | disposition home or self-care (01) | DRG 885 ==
LOC: EC 00:05 → EDBD 00:05 → 3MHU 16:58 → MERGE 16:58
PROVIDERS: ADMIT Psychiatry & Neurology Psychiatry; ATTEND Psychiatry & Neurology Psychiatry
DX: F33.2 Major depressive disorder, recurrent severe without psychotic features (principal); E89.0 Postprocedural hypothyroidism; Z63.4 Disappearance and death of family member; E06.3 Autoimmune thyroiditis; Z60.2 Problems related to living alone; T51.0X2D Toxic effect of ethanol, intentional self-harm, subsequent encounter; T42.6X2D Poisoning by other antiepileptic and sedative-hypnotic drugs, intentional self-harm, subsequent encounter; R56.9 Unspecified convulsions; Z79.899 Other long term (current) drug therapy; F41.9 Anxiety disorder, unspecified
CPT/HCPCS: 36415; 80053; 80061; 80143; 80175; 80179; 80306; 80320; 81001; 81025; 82075; 83036; 83605; 83735; 84439; 84443; 85025; 85610; 87635; 93005; 96360; 96361; 99291